=== PATIENT | female | born 1995 | race Hispanic/Latino ===

== ENCOUNTER 2018-03-18 12:01 | Emergency (ER) | END 2018-03-18 12:53 | disposition left against medical advice (07) | LOC: ERS 12:01 | DX: Z53.21 Procedure and treatment not carried out due to patient leaving prior to being seen by health care provider (principal) ==

== ENCOUNTER 2019-09-06 21:26 | Emergency (ER) | payer SELFPAY ==
[2019-09-06] MEDS ORDERED: Acetaminophen 325 MG TAB ONE (22:55)
[2019-09-06] MEDS ORDERED: Ibuprofen 200 MG TAB ONE (23:38)
== END 2019-09-06 23:58 | disposition home or self-care (01) ==
LOC: ERS 21:26
DX: J11.1 Influenza due to unidentified influenza virus with other respiratory manifestations (principal)
CPT/HCPCS: 87804; 99283

== ENCOUNTER 2020-04-14 09:25 | Emergency (ER) | payer OTHER, SELFPAY ==
[2020-04-15 12:18] LABS: SARS-CoV-2 MS2 Positive; SARS-CoV-2 N Gene Negative; SARS-CoV-2 S Gene Negative; SARS-CoV-2 orf1ab Negative
== END 2020-04-14 09:49 | disposition home or self-care (01) ==
LOC: ERS 09:25
DX: R05 Cough (principal); Z20.828 Contact with and (suspected) exposure to other viral communicable diseases; R51 Headache; R11.10 Vomiting, unspecified
CPT/HCPCS: 87635; 99283; U0003

== ENCOUNTER 2020-07-22 04:47 | Emergency (ER) | payer OTHER, SELFPAY ==
[2020-07-22] MEDS ORDERED: HYDROcodone/Acetaminophen 5/325 mg Tablet ONE (05:08)
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
== END 2020-07-22 08:19 | disposition home or self-care (01) ==
LOC: ERS 04:47
DX: S06.9X9A Unspecified intracranial injury with loss of consciousness of unspecified duration, initial encounter (principal); S01.511A Laceration without foreign body of lip, initial encounter; Y04.8XXA Assault by other bodily force, initial encounter
CPT/HCPCS: 70450; 70486